=== PATIENT | male | born 2000 | race Caucasian/White ===

== ENCOUNTER 2023-04-26 14:20 | Emergency (ER) | payer MEDICAID, OTHER ==
[~2023-04-26] VITALS: Ht 185 cm; Wt 95.2 kg
[2023-04-26 14:29] VITALS: BP 137/76
[2023-04-26] MEDS ORDERED: Tetanus/Diphtheria/Pertussis (Acell) ADULT Vaccine 0.5 ML IM ONE (14:45)
[2023-04-26] MEDS ORDERED: TETRACAINE 0.5% OPHTH SOLN 5 ML BTL OU ONE (14:45)
[2023-04-26] MEDS ORDERED: FLUORESCEIN 1 MG OPHTHALMIC STRIPS OU ONE (14:45)
--- NOTE | 2023-04-26 14:53 | ED EENT ---
History of Present Illness General Chief Complaint: Eye Problems Stated Complaint: FACIAL/EYE INJ Nursing Triage Note: PATIENT VERBALIZED AT WORK HAD GREASE SPLASHED IN FACE AND RT EYE. PATIENT STATES RINSED OUT EYE AND OFF FACE. PATIENT ALSO STATES PUT BURN CREAM ONTO FACE. PATIENT STATES RT EYE PAINFUL AND BLURRY VISION. Source: patient Exam Limitations: no limitations (ALLY MAGANA APRN) History of Present Illness Date Seen by Provider: Apr 26, 2023 Time Seen by Provider: 14:31 Initial Comments 22-year-old male presents to the ER after getting splashed in the face with hot grease at work. He states that some of it landed in his right eye. Complains of araiza to his face and burning pain in his right eye. Some blurry vision in the right eye. States that he washed his face, and flushed his eye. He applied burn cream to his skin. He is uncertain of his last tetanus. (ALLY MAGANA APRN) Allergies and Home Medications Allergies Coded Allergies: No Known Drug Allergies (Unverified , 03/18/10) Patient Home Medication List Home Medication List Reviewed: Yes (ALLY MAGANA APRN) Review of Systems Review of Systems Constitutional: see HPI (LALY MAGANA APRN) Past Wrmamxn-Endfat-Gxithw Hx Immunizations Up To Date Influenza Vaccine Up-to-Date: No; Not Current First/Initial COVID19 Vaccinat: NONE (ALLY MAGANA APRN) Physical Exam Vital Signs Vital Signs - First Documented 04/26/23 14:29 Temp 36.7 Pulse 79 Resp 20 B/P (MAP) 137/76 (96) Pulse Ox 96 O2 Delivery Room Air (GUZMAN CHAWLA MD) Height, Weight, BMI Height: '" Weight: lbs. oz. kg; 27.00 BMI Method:Stated General Appearance: WD/WN, no apparent distress Eyes: right eye other (Mild injection) Neck: supple, normal inspection Cardiovascular: regular rate, rhythm, systolic murmur Respiratory: lungs clear, normal breath sounds, no respiratory distress, no accessory muscle use Neurologic/Psychiatric: alert, normal mood/affect Skin: normal color, warm/dry, other (Several small first-degree araiza to face) (ALLY MAGANA APRN) Progress/Results/Core Measures Results/Orders Blood Pressure Mean: 96 Progress Progress Note : Progress Note Patient seen and evaluated, resting in bed, no acute distress. Visual acuity performed, left eye 20/20, right eye 20/30. No visible injury to eye. I examined right eye under Herr lamp with tetracaine and fluorescein. No abrasi ons identified. Tetanus has been updated. Do not see reason for antibiotic eye ointment or drops. Patient instructed to take Tylenol and ibuprofen as needed for pain. Patient structured to follow-up with the [facility] if he develops severe pain or worsening vision. Patient instructed to return to the ER if he has the symptoms and is unable to get into the [facility]. (ALLY MAGANA APRN) Departure Impression Primary Impression: Burn Disposition: 01 HOME, SELF-CARE Condition: Stable Departure-Patient Inst. Decision time for Depature: 15:05 (ALLY MAGANA APRN) Referrals: PRO ESPINOZA OD,LOCAL PHYSICIAN (PCP) Primary Care Physician Patient Instructions: Skin Araiza (DC) Add. Discharge Instructions: You may take Tylenol or ibuprofen as needed for pain. If you develop severe eye pain, blurred vision, visual changes, follow-up with the [facility], or return to the ER. All discharge instructions reviewed with patient and/or family. Voiced understanding. Scripts No Active Prescriptions or Reported Meds ATTENDING PHYSICIAN NOTE: I was physically present as attending physician in the emergency department during the care of this patient. I briefly examined this patient's right eye after it had been prepped with fluorescein. No overt corneal injury was identified. There was minor conjunctival irritation. I discussed treatment plan with Ally Magana NP. (GUZMAN CHAWLA MD) ALLY MAGANA APRN Apr 26, 2023 14:53 GUZMAN CHAWLA MD Apr 29, 2023 16:46
[2023-04-26] MEDS ORDERED: TETRACAINE 0.5% OPHTH SOLN 4 ML BTL (SINGLE DOSE ONLY) ONE (14:55)
== END 2023-04-26 15:19 | disposition home or self-care (01) ==
LOC: EDUNIT# 14:20 → ER 14:25
DX: T20.19XA Burn of first degree of multiple sites of head, face, and neck, initial encounter (principal); Z23 Encounter for immunization; X12.XXXA Contact with other hot fluids, initial encounter; Y92.59 Other trade areas as the place of occurrence of the external cause; Y99.0 Civilian activity done for income or pay
CPT/HCPCS: 90471; 90715; 99284